=== PATIENT | female | born 2000 | race Caucasian/White ===

== ENCOUNTER 2018-07-01 17:41 | Emergency (ER) | payer OTHER, SELFPAY ==
[2018-07-01 18:24] LABS: Bilirubin Negative (Negative); Blood, Urine Negative (Negative); Clarity CLEAR (Clear); Glucose, Urine (Dipstick) Negative (Negative); Leukocyte Trace (Negative); Nitrite Positive (Negative); Protein, Urine (Dipstick) Negative (Neg-Trace); Specific Gravity, Urine 1.022 (1.002-1.036); Urobilinogen 0.2 mg/dL (0.2-1.0); pH, Urine 5.5 (5.0-9.0)
[2018-07-01 18:27] LABS: Bacteria/HPF 2+ HPF (None Seen); Hyaline Casts/LPF 0-3 HYALINE CAST LPF (0-3 Hyaline); Pathc Cast-AUWi Flag 0.43 (0-2.49); RBC/HPF 0-3 HPF (0-3); Squamous Epithelial 0-3 HPF (0-3)
[2018-07-01 18:30] LABS: Pregnancy Test - Urine (BHCG) Negative (Negative); Pregu Control Background? CLEAR/WHITE (CLR/WHITE); Pregu Control Bar Appear? YES (CONTROL BAR); Specific Gravity 1.022 (1.002-1.036)
[2018-07-01 18:32] LABS: #Basophils 0.1 thou/uL (0.0-0.2); #Eosinphils 0.1 thou/uL (0.0-0.7); #Lymphocytes 3.5 thou/uL (1.20-3.40); #Monocytes 0.9 thou/uL (0.11-0.59); #Neutrophils 8.1 thou/uL (1.40-6.50); %Basophils 0.5 % (0.0-1.0); %Eosinophils 0.7 % (0.0-10.0); %Lymphocytes 27.4 % (28.0-48.0); %Neutrophils 64.3 % (31.0-61.0); Hemoglobin 12.7 g/dL (12.0-16.0); Mean Corpuscular HGB CONC 33.1 g/dL (32.0-36.0); Mean Corpuscular Volume 87.7 fL (78.0-98.0); Mean Platelet Volume 7.7 fL (7.4-10.4); Platelet Count 253 thou/uL (130-400); RBC Distribution Width 13.6 % (11.5-14.5); Red Blood Cell (RBC) Count 4.38 mill/uL (4.00-5.20); White Blood Cell (WBC) Count 12.6 thou/uL (4.8-10.8)
[2018-07-01 18:33] LABS: Medtox Reader # READER 4; THC/Cannabinoid Screen Detected (NotDetected)
[2018-07-01 18:34] LABS: Amphetamine Not Detected (NotDetected); Barbiturates Screen Not Detected (NotDetected); Benzodiazepine Screen Detected (NotDetected); Cocaine Metabolite Screen Not Detected (NotDetected); Medtox Control Line Valid? VALID (VALID); Methadone Not Detected (NotDetected); Methamphetamine Not Detected (NotDetected); Opiate Screen Not Detected (NotDetected); Oxycodone Screen Not Detected (NotDetected); Phencyclidine (PCP) Not Detected (NotDetected); Tricyclic Screen Not Detected (NotDetected)
[2018-07-01 18:48] LABS: ALT (SGPT) 21 U/L (8-55); AST (SGOT) 15 U/L (5-30); Acetaminophen Less than 6.0 mcg/mL (10.0-30.0); Albumin 4.2 g/dL (3.5-5.0); Alcohol Less than 10 mg/dL (Less than 10); Alkaline Phosphatase 94 U/L (40-150); Anion Gap 14 mmol/L (10-20); BUN (Urea Nitrogen) 9 mg/dL (8.4-21.0); Bilirubin, Total 0.5 mg/dL (0.2-1.2); Calc. Creatinine Clearance 0 mL/min (70-130); Calcium 9.5 mg/dL (7.8-10.44); Carbon Dioxide 25 mmol/L (22-29); Chloride 105 mmol/L (98-107); Estimated GFR-MDRD Greater than 90; Globulin 3.4 g/dL (2.4-3.5); Glucose 97 mg/dL (70-105); Potassium 3.9 mmol/L (3.5-5.1); Protein, Total 7.6 g/dL (6.0-8.3); Salicylate Less than 8.0 mg/dL (15.0-30.0); Sodium 140 mmol/L (136-145)
[2018-07-01] MEDS ORDERED: risperiDONE 1 MG TAB ONE (19:19)
[2018-07-01] MEDS ORDERED: Haloperidol Lactate 5 MG/ML VIAL ONE (19:22)
[2018-07-01] MEDS ORDERED: Lorazepam 2 MG/ML VIAL ONE ×2 (19:22→21:53)
[2018-07-01] MEDS ORDERED: Ziprasidone 20 MG VIAL ONE (20:28)
[2018-07-01] MEDS ORDERED: Water For Inject, Bacteriostat 30 ML ONE (20:28)
[2018-07-01] MEDS ORDERED: diphenhydrAMINE 50 MG/ML VIAL ONE (21:55)
[2018-07-02] MEDS ORDERED: Nitrofurantoin Macrocrystal 50 MG CAP PO SCH (09:00)
[2018-07-02] MEDS ORDERED: Ibuprofen 200 MG TAB ONE (15:23)
--- NOTE | 2018-07-05 14:45 | EKG ---
Test Reason : Blood Pressure : / mmHG Vent. Rate : 100 BPM Atrial Rate : 100 BPM P-R Int : 132 ms QRS Dur : 080 ms QT Int : 342 ms P-R-T Axes : 026 026 000 degrees QTc Int : 441 ms Normal sinus rhythm / Sinus tachycardia Nonspecific T wave inversion in ant-precordial leads Possible Anterior infarct , age undetermined Abnormal ECG Confirmed by SHANE LAO, ROBERTO Vargas ([id number]), pictures editor RORY GELLER ([id number]) on 07/05/2018 2:44:29 PM Referred By: Confirmed By:ROBERTO LYNN MD
== END 2018-07-02 20:15 ==
LOC: ERS 17:41
DX: F20.9 Schizophrenia, unspecified (principal); N39.0 Urinary tract infection, site not specified; J45.909 Unspecified asthma, uncomplicated; F90.9 Attention-deficit hyperactivity disorder, unspecified type; F25.9 Schizoaffective disorder, unspecified; F31.9 Bipolar disorder, unspecified; F17.210 Nicotine dependence, cigarettes, uncomplicated
CPT/HCPCS: 36415; 80053; 80306; 80307; 81003; 81015; 81025; 85025; 93005; 96372; J1200; J1630; J2060; J3486

== ENCOUNTER 2019-07-15 16:23 | Emergency (ER) | payer MEDICARE, SELFPAY ==
[2019-07-15] MEDS ORDERED: Mag-Al 1200 mg/1200 mg/30 ML UDCUP ONE (17:43)
[2019-07-15] MEDS ORDERED: Lidocaine Viscous Sol 2% 15 ml UD Cup ONE (17:43)
[2019-07-15 17:46] LABS: #Basophils 0.1 thou/uL (0.0-0.2); #Eosinphils 0.2 thou/uL (0.0-0.7); #Lymphocytes 2.9 thou/uL (1.20-3.40); #Monocytes 0.7 thou/uL (0.11-0.59); #Neutrophils 10.1 thou/uL (1.40-6.50); %Basophils 0.5 % (0.0-1.0); %Eosinophils 1.5 % (0.0-10.0); %Lymphocytes 20.9 % (28.0-48.0); %Neutrophils 72.1 % (31.0-61.0); Hemoglobin 12.9 g/dL (12.0-16.0); Mean Corpuscular HGB CONC 34.2 g/dL (32.0-36.0); Mean Corpuscular Hemoglobin 29.8 pg (25.0-35.0); Mean Corpuscular Volume 87.3 fL (78.0-98.0); Mean Platelet Volume 7.4 fL (7.4-10.4); Platelet Count 264 thou/uL (130-400); RBC Distribution Width 12.4 % (11.5-14.5); Red Blood Cell (RBC) Count 4.32 mill/uL (4.00-5.20)
[2019-07-15 17:57] LABS: BHCG - Serum Negative (NEGATIVE); Pregs Control Background? CLEAR/WHITE (CLR/WHITE); Pregs Control Bar Appear? YES (CONTROL BAR)
[2019-07-15 18:00] LABS: ALT (SGPT) 14 U/L (8-55); AST (SGOT) 14 U/L (5-34); Alkaline Phosphatase 97 U/L (40-100); Anion Gap 11 mmol/L (10-20); BUN (Urea Nitrogen) 11 mg/dL (7.0-18.7); Bilirubin, Total 0.2 mg/dL (0.2-1.2); Calc. Creatinine Clearance 0 mL/min (70-130); Carbon Dioxide 27 mmol/L (22-29); Chloride 103 mmol/L (98-107); Estimated GFR-MDRD Greater than 90; Globulin 3.6 g/dL (2.4-3.5); Glucose 118 mg/dL (70-105); Lipase 27 U/L (8-78); Potassium 4.1 mmol/L (3.5-5.1); Protein, Total 7.6 g/dL (6.0-8.3); Sodium 137 mmol/L (136-145)
--- NOTE | 2019-07-15 18:47 | RAD ---
PORTABLE CHEST: History: Epigastric pain. Comparison: 11-06-12 FINDINGS: Heart size and mediastinum are within normal limits. The lungs are clear of infiltrates. No significa nt bony findings. IMPRESSION: No active intrathoracic disease. POS: [facility]
[2019-07-15] MEDS ORDERED: Morphine 4 MG/ML VIAL ONE (19:17)
[2019-07-15] MEDS ORDERED: Ondansetron PF 4 MG/2 ML Vial ONE (19:17)
--- NOTE | 2019-07-17 15:39 | EKG ---
Test Reason : Blood Pressure : / mmHG Vent. Rate : 112 BPM Atrial Rate : 112 BPM P-R Int : 140 ms QRS Dur : 074 ms QT Int : 342 ms P-R-T Axes : 023 005 015 degrees QTc Int : 466 ms Sinus tachycardia Otherwise normal ECG Confirmed by GENESIS LARSON DO ([id number]), proposal editor DEANA TRACY ([id number]) on 07/17/2019 3:39:40 PM Referred By: Confirmed By:GENESIS LARSON DO
== END 2019-07-15 19:25 | disposition home or self-care (01) ==
LOC: ERS 16:23
DX: R10.13 Epigastric pain (principal); J45.909 Unspecified asthma, uncomplicated; F90.9 Attention-deficit hyperactivity disorder, unspecified type; F31.9 Bipolar disorder, unspecified; F17.210 Nicotine dependence, cigarettes, uncomplicated
CPT/HCPCS: 36415; 71045; 80053; 83690; 84703; 85025; 93005; 94760; J2270; J2405

== ENCOUNTER 2019-08-31 14:13 | Emergency (ER) | payer MEDICARE ==
[2019-08-31 14:49] LABS: #Basophils 0.1 thou/uL (0.0-0.2); #Eosinphils 0.2 thou/uL (0.0-0.7); #Lymphocytes 2.8 thou/uL (1.20-3.40); #Monocytes 0.7 thou/uL (0.11-0.59); %Basophils 0.5 % (0.0-1.0); %Lymphocytes 19.1 % (28.0-48.0); %Monocytes 4.9 % (0.0-4.0); %Neutrophils 74.6 % (31.0-61.0); Hemoglobin 12.6 g/dL (12.0-16.0); Mean Corpuscular HGB CONC 32.6 g/dL (32.0-36.0); Mean Corpuscular Hemoglobin 28.2 pg (25.0-35.0); Mean Corpuscular Volume 86.4 fL (78.0-98.0); Mean Platelet Volume 7.4 fL (7.4-10.4); Platelet Count 284 thou/uL (130-400); Red Blood Cell (RBC) Count 4.48 mill/uL (4.00-5.20); White Blood Cell (WBC) Count 14.8 thou/uL (4.8-10.8)
[2019-08-31] MEDS ORDERED: Acetaminophen 500 MG TAB ONE (15:11)
[2019-08-31 15:14] LABS: BHCG - Serum Negative (NEGATIVE); Pregs Control Background? CLEAR/WHITE (CLR/WHITE); Pregs Control Bar Appear? YES (CONTROL BAR)
--- NOTE | 2019-08-31 15:18 | CT ---
BRAIN CT WITHOUT IV CONTRAST: Date: 08/31/2019 HISTORY: Injury, possible seizure activity. Fall to the ground. FINDINGS: No focal mass or midline shift. No intra or extra-axial hemorrhage. Sinuses and mastoids are clear. IMPRESSION: No significant acute intracranial process. No mass or bleed. POS: [facility]
[2019-08-31 15:20] LABS: ALT (SGPT) 14 U/L (8-55); AST (SGOT) 14 U/L (5-34); Albumin 4.2 g/dL (3.5-5.0); Alkaline Phosphatase 108 U/L (40-100); Anion Gap 13 mmol/L (10-20); BUN (Urea Nitrogen) 11 mg/dL (7.0-18.7); Bilirubin, Total 0.4 mg/dL (0.2-1.2); Calc. Creatinine Clearance 0 mL/min (70-130); Carbon Dioxide 23 mmol/L (22-29); Chloride 105 mmol/L (98-107); Estimated GFR-MDRD Greater than 90; Globulin 3.8 g/dL (2.4-3.5); Glucose 96 mg/dL (70-105); Sodium 137 mmol/L (136-145)
[2019-08-31] MEDS ORDERED: Ibuprofen 800 MG TAB ONE (15:39)
== END 2019-08-31 16:41 | disposition home or self-care (01) ==
LOC: ERS 14:13
DX: R55 Syncope and collapse (principal); J45.909 Unspecified asthma, uncomplicated; F90.9 Attention-deficit hyperactivity disorder, unspecified type; F31.9 Bipolar disorder, unspecified; F25.9 Schizoaffective disorder, unspecified; F17.210 Nicotine dependence, cigarettes, uncomplicated; Z79.899 Other long term (current) drug therapy
CPT/HCPCS: 36415; 70450; 80053; 84146; 84703; 85025; 93005

== ENCOUNTER 2019-10-24 18:32 | Inpatient (IN) | payer MEDICARE ==
[2019-10-24] MEDS ORDERED: Ketorolac Tromethamine 30 MG/ML VIAL ONE (19:13)
[2019-10-24] MEDS ORDERED: Ondansetron PF 4 MG/2 ML Vial ONE (19:14)
[2019-10-24 19:17] LABS: #Lymphocytes 1.6 thou/uL (1.20-3.40); #Monocytes 0.6 thou/uL (0.11-0.59); %Basophils 0.4 % (0.0-1.0); %Eosinophils 0.5 % (0.0-10.0); %Lymphocytes 17.2 % (21.0-51.0); %Monocytes 6.8 % (0.0-10.0); %Neutrophils 75.2 % (42.0-75.0); Hemoglobin 14.4 g/dL (12.0-16.0); Mean Corpuscular Hemoglobin 28.8 pg (27.0-31.0); Mean Corpuscular Volume 84.8 fL (78.0-98.0); Mean Platelet Volume 7.9 fL (7.4-10.4); Platelet Count 279 thou/uL (130-400); RBC Distribution Width 12.3 % (11.5-14.5); White Blood Cell (WBC) Count 9.3 thou/uL (4.8-10.8)
[2019-10-24 19:26] LABS: BHCG - Serum Negative (NEGATIVE); Pregs Control Background? CLEAR/WHITE (CLR/WHITE); Pregs Control Bar Appear? YES (CONTROL BAR)
[2019-10-24 19:46] LABS: ALT (SGPT) 197 U/L (8-55); AST (SGOT) 259 U/L (5-34); Albumin 4.2 g/dL (3.5-5.0); Alkaline Phosphatase 267 U/L (40-110); Anion Gap 15 mmol/L (10-20); BUN (Urea Nitrogen) 5 mg/dL (7.0-18.7); Bilirubin, Total 2.3 mg/dL (0.2-1.2); Calc. Creatinine Clearance 0 mL/min (70-130); Calcium 9.5 mg/dL (7.8-10.44); Carbon Dioxide 25 mmol/L (22-29); Chloride 102 mmol/L (98-107); Estimated GFR-MDRD Greater than 90; Glucose 111 mg/dL (70-105); Lipase 13 U/L (8-78); Protein, Total 8.2 g/dL (6.0-8.3); Sodium 138 mmol/L (136-145)
[2019-10-24 20:16] LABS: Bilirubin 1+ (Negative); Blood, Urine Negative (Negative); Clarity Clear (Clear); Glucose, Urine (Dipstick) Normal (Negative); Leukocyte Negative Leu/uL (Negative); Nitrite Negative (Negative); Protein, Urine (Dipstick) 20 mg/dL (Neg-Trace); Urobilinogen 3 mg/dL (Less than 2)
--- NOTE | 2019-10-24 21:17 | CT ---
CT ABDOMEN NONCONTRAST CT PELVIS NONCONTRAST: (Urolithiasis protocol) DATE: 10/24/2019 HISTORY: 19-year-old female with abdominal pain TECHNIQUE: IV injection of iodinated contrast media: None Oral contrast media: None FINDINGS: Other than for urolithiasis, the lack of IV and oral contrast limits the evaluation. Liver: No contour abnormalities. Spleen: No splenomegaly. Pancreas: No contour abnormalities. Adrenals: No mass. Kidneys: No nephrolithiasis or overt hydronephrosis. Ureters: No calculi. Bladder: Nearly empty. No calculi. Abdominal aorta: No aneurysm. Small bowel: No dilation. Colon: No adjacent fat stranding. Appendix: No dilation or adjacent fat stranding. Free air: None Free fluid: None Adnexa: Approximately 6 x 5.5 x 5.5 cm smoothly well-circumscribed simple cyst within pelvic cavity c entered slightly to the right of midline superior to the urinary bladder, deeply indenting the bladder dome. No surrounding fat stranding. IMPRESSION: 1. A 6 cm intrapelvic cyst, presumably arising from right ovary. 2. No acute findings.
[2019-10-24] MEDS ORDERED: Piperacillin/Tazobactam 3.375 GM VIAL ONE (22:13)
--- NOTE | 2019-10-24 22:26 | ULT ---
ULTRASOUND ABDOMEN LIMITED: (RIGHT UPPER QUADRANT) DATE: 10/24/2019 HISTORY: 19-year-old female with abdominal pain and elevated LFTs. FINDINGS: Gallbladder:Multiple small mobile gallstones. These are noncalcified, because they are not visible on the CT earlier. Mildly distended. Normal mural thickness 3 mm or less. Common duct: 7 mm. Contains a gallstone approximately 8 or 10 mm in size. Liver:Normal Pancreas:Tail obscured by shadowing from bowel gas. Unremarkable head Right kidney:No hydronephrosis IMPRESSION: 1. Positive for choledocholithiasis. 2. Positive for cholelithiasis.
[2019-10-25 00:24] VITALS: BMI 47.4
[2019-10-25] MEDS ORDERED: Ziprasidone 60 MG CAP PO SCH (00:30)
[2019-10-25] MEDS: Sodium Chloride 0.9% 1,000 ML IV SCH ×3 (00:53→16:06)
[2019-10-25] MEDS: Piperacillin/Tazobactam 3.375 GM in Sodium Chloride 0.9% 100 ML IVPB SCH ×4 (03:24→23:11)
[2019-10-25 05:26] LABS: Band 11 % (5-11); Hemoglobin 13.2 g/dL (12.0-16.0); Lymphocytes 4 % (21-51); MDiff Complete? YES; Mean Corpuscular HGB CONC 33.5 g/dL (32.0-36.0); Mean Corpuscular Hemoglobin 28.3 pg (27.0-31.0); Mean Corpuscular Volume 84.5 fL (78.0-98.0); Mean Platelet Volume 7.9 fL (7.4-10.4); Monocytes 7 % (0-10); Neutrophil 78 % (42-75); Platelet Count 273 thou/uL (130-400); RBC Distribution Width 12.4 % (11.5-14.5); Red Blood Cell (RBC) Count 4.66 mill/uL (4.20-5.40); White Blood Cell (WBC) Count 15.2 thou/uL (4.8-10.8)
[2019-10-25 05:30] LABS: ALT (SGPT) 223 U/L (8-55); AST (SGOT) 264 U/L (5-34); Albumin 3.8 g/dL (3.5-5.0); Alkaline Phosphatase 296 U/L (40-110); Anion Gap 14 mmol/L (10-20); BUN (Urea Nitrogen) 4 mg/dL (7.0-18.7); Bilirubin, Total 2.9 mg/dL (0.2-1.2); Calc. Creatinine Clearance 244 mL/min (70-130); Calcium 8.9 mg/dL (7.8-10.44); Carbon Dioxide 24 mmol/L (22-29); Chloride 103 mmol/L (98-107); Estimated GFR-MDRD Greater than 90; Globulin 3.6 g/dL (2.4-3.5); Glucose 128 mg/dL (70-105); Potassium 3.8 mmol/L (3.5-5.1); Protein, Total 7.4 g/dL (6.0-8.3); Sodium 137 mmol/L (136-145)
--- NOTE | 2019-10-25 06:18 | HP ---
CHIEF COMPLAINT: Abdominal pain. HISTORY OF PRESENT ILLNESS: Ms. Garcia is a 19-year-old female with past medical history of schizophrenia and bipolar/psychosis, who presents to the emergency room with abdominal pain, associated with nausea and vomiting that started earlier today. The patient denies fevers, chills, or sick contacts. Workup in the emergency room including right upper quadrant ultrasound. The patient was found to have cholelithiasis with choledocholithiasis. CT of the abdomen did show a 6-cm intrapelvic cyst arising from the ovary. Otherwise, no acute finding. The patient is being admitted to the hospital for further management. PAST MEDICAL HISTORY: As mentioned above in the History of Present Illness. SOCIAL HISTORY: The patient is a former drug user, abused marijuana, last in 2019. Ecstasy, last one year ago. She currently uses tobacco, smokes cigarettes. She lives at home with family. FAMILY HISTORY: Reviewed and noncontributory. HOME MEDICATIONS: Please see home medication reconciliation form for updated medications. ALLERGIES: ALLERGIC TO LITHIUM. REVIEW OF SYSTEMS: Review of 14 systems negative except what is mentioned in History of Present Illness. PHYSICAL EXAMINATION: GENERAL: The patient is awake, alert, in mild distress. VITAL SIGNS: Blood pressure 130/60, pulse is 87, respiratory rate is 18, temperature is 98.2, and oxygen saturation 98% on room air. HEENT: Head and neck; normocephalic, atraumatic. NECK: Supple. No JVD. CHEST: Fair bilateral air entry. HEART: S1, S2. Regular. ABDOMEN: Soft with epigastric right upper quadrant tenderness. Bowel sounds present. NEUROLOGIC: Awake, alert, and oriented x3. PSYCH: Unable to assess. EXTREMITIES: No clubbing, no cyanosis. GENITOURINARY: No suprapubic tenderness. No flank tenderness. IMAGING STUDIES: CT of the abdomen and right upper quadrant ultrasound, as mentioned above in History of Present Illness. AST 259, ALT 197, alkaline phosphatase 267, bilirubin is 2.3. WBC count is 9.3. ASSESSMENT: 1. Cholelithiasis with choledocholithiasis. 2. Acute abdominal pain. 3. Vomiting. 4. Bipolar disorder/psychosis/schizophrenia. PLAN: 1. Admit. 2. Keep n.p.o. 3. IV fluids. 4. Consult GI for evaluation and further management. 5. To consult Surgery for evaluation and further management. 6. Pain management. 7. Reconcile home medications. 8. DVT prophylaxis as appropriate. 9. Expected length of stay, 2 midnights or more. Job ID: [id number]
[2019-10-25] MEDS: Famotidine/PF 20 mg/2ml Vial SLOW IVP SCH ×2 (09:00→20:36)
[2019-10-25] MEDS: Ziprasidone 60 MG CAP PO SCH ×2 (09:07→16:08)
[2019-10-25] MEDS ORDERED: Fentanyl 100 MCG/2 ML VIAL ONE ×5 (09:43→13:58)
[2019-10-25] MEDS ORDERED: Lidocaine 2% Jelly 5 ML TUBE ONE (09:43)
[2019-10-25] MEDS ORDERED: Bupivacaine 0.25% HCL 30 ML VIAL ONE (09:58)
[2019-10-25] MEDS ORDERED: Lidocaine 1% w/Epinephrine 1:100K 20 ML VIAL ONE (09:58)
--- NOTE | 2019-10-25 10:49 | CON ---
DATE OF CONSULTATION: CHIEF COMPLAINT: Abdominal pain with abdominal ultrasound showing cholelithiasis with choledocholithiasis. HISTORY OF PRESENT ILLNESS: The patient is a 19-year-old woman, who presented to the emergency department with 1-week history of nausea, vomiting, but increased significantly causing her to come to the emergency department. The patient believes that her original abdominal complaints started in August and were off and on until she presented to the emergency department. The patient while on the emergency department underwent evaluation and examination to include abdominal CT and abdominal ultrasound that were consistent with cholelithiasis with choledocholithiasis and acute cholecystitis, which time we were asked to evaluate the patient for cholecystectomy. The patient is also being evaluated by Dr. Palencia for ERCP. ALLERGIES: LITHIUM. CURRENT MEDICATIONS: 1. Bentyl. 2. Sertraline. 3. Geodon. PAST SURGICAL HISTORY: None. PAST MEDICAL HISTORY: Depression, bipolar disorder and anxiety. SOCIAL HISTORY: The patient lives at home with family. She smokes cigarettes and denies alcohol. Has used marijuana and ecstasy in the past. REVIEW OF SYSTEMS: Ten-point review of systems is negative, except as otherwise stated. PHYSICAL EXAMINATION: VITAL SIGNS: Temperature is 98.9, heart rate 81, blood pressure 120/70, respirations 18, oxygen saturation 97% on room air. GENERAL: The patient is resting comfortably in bed. She is awake, alert, oriented, and appropriate. HEENT: Unremarkable. LUNGS: Clear to auscultation bilaterally with good inspiratory and expiratory effort, though the patient does have some right upper quadrant pain with deep inspiration. ABDOMEN: The abdomen is soft with right upper quadrant pain. Otherwise, no peritoneal signs. The patient does have active bowel sounds. Meyers sign is positive. EXTREMITIES: Neurovascularly intact x4. BACK: Atraumatic and nontender. There is no CVA tenderness. LABORATORY FINDINGS: White blood cell count 15.2, hemoglobin 13.2, hematocrit 39.4, platelets 273. Urinalysis is positive for urobilinogen and bilirubin. Sodium 137, potassium 3.8, chloride 103, CO2 of 24, BUN 4, creatinine 0.70, glucose 128. Total bilirubin is 2.9 up from 2.3; AST is 264, increased from 259; ALT 223, increased from 197; alkaline phosphatase is 296, increased from 267. Serum hCG is negative. RADIOGRAPHIC REPORTS: CT of the abdomen and pelvis without contrast showed no acute findings with incidental finding of a 6 cm right ovarian cyst. Abdominal ultrasound is positive for choledocholithiasis, cholelithiasis. Common bile duct measuring 7 mm. ASSESSMENT: 1. Abdominal pain. 2. Cholelithiasis with choledocholithiasis. PLAN: Plan will be to keep the patient n.p.o., plan for laparoscopic cholecystectomy, followed by ERCP. Postoperatively, we will repeat her labs in the morning, begin her diet, and likely will be able to discharge the patient home tomorrow. The evaluation, examination, laboratory, and radiographic findings were done with Dr. Hunt. We appreciate this consultation and being able to help with this patient's care. Job ID: [id number] [facility]
--- NOTE | 2019-10-25 10:49 | CON ---
DATE OF CONSULTATION: 10/25/2019 REASON FOR CONSULT: "Choledocholithiasis." HISTORY OF PRESENT ILLNESS: Ms. Garcia is a pleasant 19-year-old female who came to the emergency room yesterday for abdominal pain for about a week, upper abdomen, and also some back pain along with some vomiting. She had a little bit of diarrhea as well. She denied any fever, chills, rigors, myalgias, arthralgias, or flu-like symptoms. She notes she has had this pain on and off at least back to whole August. She has had a few prescriptions for Bentyl from her PCP. At this presentation, she was noted to have elevated liver enzymes, which is a new finding from prior evaluations. She had a CAT scan without any IV or oral contrast, which was normal except for a 6 cm cyst arising from the ovary. An ultrasound was then performed and showed cholelithiasis and a 7 to 8 mm common bile duct with showing choledocholithiasis. The patient has had no fever. She has been started on Zosyn. She denies any vomiting. She is urinating. PAST MEDICAL HISTORY: 1. Notable for bipolar disorder. 2. She has a history of hypertriglyceridemia. 3. She has had ADHD. 4. She has had previous suicide attempts with hospitalization at [facility] in [place]. PAST SURGICAL HISTORY: None. SOCIAL HISTORY: Former drug abuse; marijuana, ecstasy; none since June 2019. ALLERGIES: LITHIUM. MEDICATIONS: Presently, 1. Geodon. 2. Sertraline. Dicyclomine at home. Here, she received Toradol yesterday, Zofran, Zosyn in the ER as well as a liter of normal saline. Presently, she is on Pepcid and normal saline 100, Zosyn, Geodon, and Zoloft. REVIEW OF SYSTEMS: No prior history of pancreatitis. No melena, hematochezia, or hematemesis. No shortness of breath, dyspnea, or chest pain. No reflux or dysphagia. No viral symptoms. No recent travel out of the state or out of the country. No sick contacts at home with COVID or flu-like illness. PHYSICAL EXAMINATION: VITAL SIGNS: Temperature is 98.3, pulse 81, blood pressure 120/70. GENERAL: The patient is resting in bed. She is overweight. She is nonicteric. Oropharynx is dry. LUNGS: Clear. ABDOMEN: Notable for tenderness without guarding or rebound, mostly in the upper abdomen. She has some low back pain. When I palpate, she states this is more over the sacral area which is mildly tender. EXTREMITIES: No clubbing, cyanosis, or edema. SKIN: Without rash or lesions. LABORATORY DATA: Urinalysis showed some ketones, 1+ bilirubin on admission yesterday. White count is 15.2, it was 9.3 yesterday; hemoglobin is 13.2; platelet count is 273. She had 78% segs and 11% bands. Sodium 137, potassium 3.8, BUN and creatinine are 4 and 0.7, glucose 128. AST 2.9, it was 2.3 yesterday, it was normal on 08/31/2019. AST and ALT are 264 and 223, they were 259 and 197 yesterday, they were normal on 08/31. Alkaline phosphatase of 296, it was normal on 08/31. test negative on 10/23. Lipase was normal yesterday, it was 13. IMAGING DATA: CT scan shows a cyst in the pelvis, suspected to be ovarian by Radiology, suspected to be from the right ovary. That exam showed no overt choledocholithiasis. An ultrasound yesterday at 2100 showed cholelithiasis and suspected choledocholithiasis with normal thickness of the gallbladder, 7 mm common bile duct with an 8 to 10 mm size stone in the common bile duct. ASSESSMENT: Cholelithiasis and choledocholithiasis with elevated white count and mild bandemia. She does not appear to be septic at this time or have pancreatitis at this time, although her lipase was not checked today. She has been started on antibiotics empirically. She has mildly tender abdomen. She is very high risk for cholangitis and pancreatitis. She needs an ERCP that will need to be done today and we are going to go ahead and do that first and Surgery will follow the ERCP with laparoscopic cholecystectomy and we will plan for that today. The patient has been informed of the risks, benefits, and possible complications of endoscopy including perforation, bleeding, reaction to medication, and aspiration and informed consent was obtained. I informed the patient the risk of pancreatitis, bleeding, infection and possibly not being able to remove the stone. She wished to proceed. Job ID: [id number]
[2019-10-25] MEDS ORDERED: Glycopyrrolate 0.2 MG/ML 5 ML SYRINGE ONE (11:25)
[2019-10-25] MEDS ORDERED: Ondansetron PF 4 MG/2 ML Vial ONE (11:25)
[2019-10-25] MEDS ORDERED: Ketorolac Tromethamine 30 MG/ML VIAL ONE (11:25)
[2019-10-25] MEDS ORDERED: PROPOFOL 200 MG/20 ML VIAL ONE (11:26)
[2019-10-25] MEDS ORDERED: Succinylcholine Chloride 20 MG/ML 10 ml SYRINGE FS ONE (11:26)
[2019-10-25] MEDS ORDERED: Dexamethasone 20 MG/5 ML VIAL ONE (11:26)
[2019-10-25] MEDS ORDERED: Rocuronium Bromide 10 MG/ML (10ML VIAL) ONE (11:26)
[2019-10-25] MEDS ORDERED: Lidocaine 1% PF 5 ML VIAL ONE (11:26)
[2019-10-25] MEDS ORDERED: Esmolol 100 MG/10 ML VIAL ONE (11:26)
[2019-10-25] MEDS ORDERED: Indomethacin 50 MG SUPP ONE (11:46)
[2019-10-25] MEDS ORDERED: Iothalamate Meglumine 60% 50 ML VIAL FS ONE (11:46)
--- NOTE | 2019-10-25 13:04 | OP ---
DATE OF PROCEDURE: 10/25/2019 PREOPERATIVE DIAGNOSES: 1. Acute cholecystitis with cholelithiasis. 2. Choledocholithiasis. POSTOPERATIVE DIAGNOSES: 1. Acute cholecystitis with cholelithiasis. 2. Choledocholithiasis. PROCEDURE PERFORMED: Laparoscopic cholecystectomy. ANESTHESIA: General endotracheal anesthesia. ESTIMATED BLOOD LOSS: 10 mL. FLUIDS GIVEN: 700 mL of crystalloids. COUNTS: Sponge and instrument counts were verified as correct x2. COMPLICATIONS: None apparent at the time of operation. INDICATIONS FOR OPERATION: This is a 19-year-old obese woman, who presented with epigastric right upper quadrant abdominal pain. Clinical radiographic examination was consistent with acute cholecystitis with cholelithiasis and choledocholithiasis. The patient was brought to the operating room for laparoscopic cholecystectomy, following which, she will undergo ERCP per endoscopy. DESCRIPTION OF PROCEDURE: Informed consent was obtained from the patient, who was brought to the operating room and placed in supine position. Following general anesthesia, abdomen was sterilely prepped and draped in usual fashion. The skin below the umbilicus was infiltrated with 0.25% Marcaine with epinephrine. A small curvilinear infraumbilical incision was made using 11 scalpel. Umbilical stalk was grasped with Marcos and elevated. Veress needle was inserted through the incision and placed in the peritoneal cavity, through which the abdomen was insufflated with 3 L of CO2 gas. Intraabdominal pressure noted at 2 mmHg. Following abdominal insufflation, Veress needle was removed and a 5 mm trocar was introduced using a Visiport under laparoscopy. Laparoscopy confirmed proper placement of the port. No injuries to underlying structures. Additional laparoscopy reveals the gallbladder in the usual anatomic location, partially encased by omental adhesions. Under direct laparoscopy, a 12 mm epigastric and two 5 mm right lateral subcostal ports were placed after the overlying skin were infiltrated with 0.25% Marcaine with epinephrine. Appropriate incision was made. The patient was placed in a reverse Trendelenburg position, rotated to her left. I introduced a Prestige grasper through the right lateral subcostal port attempted to grasp the fundus of the gallbladder, which was taut. I therefore decided to decompress the gallbladder to facilitate grasping. I used an Endo suction catheter with cautery to perform a cholecystotomy at the dome of the gallbladder, evacuating excess white bile. Prestige grasper was then applied to the fundus of the gallbladder, which was elevated cephalad. Omental adhesions were bluntly taken down from remainder of the gallbladder. A second Prestige grasper was introduced through the right medial subcostal port grasping the Shirley pouch, which was retracted laterally. The cystic duct was carefully dissected free from surrounding structures at the triangle of Calot. The cystic artery also dissected free from surrounding structures. The critical view was obtained of the artery and the cystic duct. The cystic duct was then divided between clips applying 2 clips proximally and 1 clip at the junction of the cystic duct and gallbladder. The cystic artery was also divided between clips in a similar fashion. The fibrosed thick-walled gallbladder was removed from the liver bed using cautery with good hemostasis and delivered of the abdominal cavity using an EndoCatch. Operative site was inspected for good hemostasis. Clips remained in place. No bile stains noted. Finding, no other pathology. Laparoscopy was terminated. Fascia of the epigastric port was closed using 0 Vicryl suture and Endoclosure device under laparoscopy. The abdomen was desufflated. All ports and instruments were removed and accounted for. Skin incisions were closed using 4-0 Monocryl suture in subcuticular fashion. Dermabond was applied over incisional closure. The patient tolerated the operation without any apparent complication and was returned to endoscopy to the care of Dr. Palencia, who will proceed with ERCP. Job ID: [id number]
--- NOTE | 2019-10-25 13:05 | RAD ---
EXAM: XR ERCP PROVIDED CLINICAL HISTORY: Common duct stone COMPARISON: None FINDINGS: Multiple spot fluoroscopic images were obtained Dr. Palencia during the course of common duct stone rem oval. IMPRESSION: As above.
[2019-10-25] MEDS ORDERED: Ondansetron HCl/PF 4 MG/2 ML Vial IVP PRN ×2 (13:20→13:45)
[2019-10-25] MEDS ORDERED: Promethazine HCl 25 MG/ML VIAL IM PRN (13:20)
[2019-10-25] MEDS ORDERED: Promethazine HCl 25 MG/ML VIAL SLOW IVP PRN (13:20)
[2019-10-25] MEDS ORDERED: Meperidine HCl/PF 25 MG/ML VIAL ONE (13:40)
[2019-10-25] MEDS ORDERED: Non-Formulary Medication 1 EACH PO PRN (13:45)
[2019-10-25] MEDS ORDERED: Meperidine HCl/PF 25 MG/ML VIAL IV PRN (13:45)
[2019-10-25] MEDS ORDERED: Promethazine HCl 25 MG/ML VIAL IM/IV PRN (13:45)
[2019-10-25] MEDS ORDERED: traMADol HCl 50 MG TAB PO PRN ×2 (14:11)
[2019-10-25] MEDS: Acetaminophen 500 MG TAB PO SCH ×2 (15:05→20:36)
--- NOTE | 2019-10-25 15:29 | OP ---
DATE OF PROCEDURE: 10/25/2019 PREPROCEDURE DIAGNOSES: 1. Elevated LFTs. 2. Cholelithiasis. 3. Suspected choledocholithiasis. 4. Status post laparoscopic cholecystectomy. IOC was not able to be performed secondary to hydrops of the gallbladder and obstructed cystic duct. POSTPROCEDURE DIAGNOSES: 1. Normal-appearing ampulla. 2. There seems to be a strictured area at the mid common bile duct. This could be at the area of the cystic duct stump. The cystic duct never did fill, but it comes in from the right aspect of the bile duct wall, is around and smooth, first is felt to be a stone on imaging, but on magnified views, this seems to be adherent to the wall of the mid common bile duct in the area of the cystic duct stump. 3. No other filling defects were seen. 4. A 12 mm balloon was able to be brought through the entire bile duct with negative occlusion cholangiogram otherwise. There was resistance of pulling across the narrowing at the mid bile duct, the balloon did come past here. There was poor drainage and therefore a 7 cm 11.[place] stent was placed across this area. I would consider the differential diagnosis would include malignancy, Mirizzi like syndrome or inflammation related to severe cholecystitis. RECOMMENDATIONS: 1. Continue antibiotics. 2. Follow LFTs. 3. Repeat ERCP in 4 to 6 weeks to remove stent and recheck anatomy. 4. We will get an MRCP if this will remain without appearance. ANESTHESIA: General endotracheal anesthesia. ANTIBIOTICS: Placed on antibiotics upstairs. Indocin was given rectally. DESCRIPTION OF PROCEDURE: After the patient is informed of the risks, benefits, and possible complications of endoscopy including perforation, reaction to medication, aspiration, risks of ERCP including pancreatitis and General Surgery was consulted to remove her gallbladder, the patient was brought from the OR to the fluoroscopy suite where she was placed in prone position. She was intubated before she was brought to the fluoroscopy suite. The side-viewing duodenoscope was advanced to the esophagus, stomach, and second and third portions of the duodenum and was slowly removed. There was good visualization of the mucosa. There was no mass lesions or AV malformations identified. The ampulla was identified and free cannulation was obtained, initially with a guidewire and then the cannula over that. The cholangiogram revealed filling defect in the mid common bile duct as noted above. This is maybe less than a centimeter in size. It was not a narrowed tapering on both sides, but an impingement on the duct from the medial side to the lateral side and this may represent inflammation. This was not mobile. It was not a free-floating stone. A 12 mm balloon was used to shoot an occlusion cholangiograms after a sphincterotomy was performed and there was no other filling defects seen or stones. There was a small amount of pus in the biliary tree that came out. Therefore, as there was poor drainage of the contrast from the upper common bile duct, common hepatic duct and intrahepatic ducts, a stent was placed across this narrowed area under fluoroscopic and video guidance. The placement was confirmed placed. There was spontaneous drainage of contrast and pus. The scope was removed. The patient tolerated the procedure well. There were no complications. Job ID: [id number]
--- NOTE | 2019-10-25 16:27 | PDOC.HOSPP ---
- Subjective Encounter Date: 10/25/19 Encounter Time: 16:23 Subjective: pt up in bed drowsy - Objective Vital Signs & Weight: Vital Signs (12 hours) Temp Pulse Resp BP Pulse Ox 10/25/19 16:18 97.4 F L 66 16 111/57 L 96 10/25/19 14:20 97.6 F 70 16 115/68 97 10/25/19 07:10 98.9 F 81 18 120/70 97 Weight Admit Weight 267 lb 10.24 oz Weight 267 lb 10.24 oz I&O: 10/24/19 10/25/19 10/26/19 06:59 06:59 06:59 Intake Total 700 Balance 700 Result Diagrams: 10/25/19 04:33 10/25/19 04:33 Hospitalist ROS - Review of Systems Respiratory: denies: cough, dry, shortness of breath, hemoptysis, SOB with excertion, pleuritic pain, sputum, wheezing, other Cardiovascular: denies: chest pain, palpitations, orthopnea, paroxysmal noc. dyspnea, edema, light headedness, other Gastrointestinal: denies: nausea, vomiting, abdominal pain, diarrhea, constipation, melena, hematochezia, other Genitourinary: denies: dysuria, frequency, incontinence, hematuria, retention, other - Medication Medications: Active Medications Generic Name Dose Route Start Last Admin Trade Name Freq PRN Reason Stop Dose Admin Acetaminophen 1,000 mg 10/25/19 14:30 10/25/19 15:05 Tylenol PO 1,000 mg Q6H PAL Administration Famotidine 20 mg 10/25/19 09:00 10/25/19 09:00 Pepcid SLOW IVP 20 mg Q12HR PAL Administration Sodium Chloride 1,000 mls @ 100 mls/hr 10/24/19 22:45 10/25/19 16:06 Normal Saline 0.9% IV 1,000 mls .Q10H PAL Administration Piperacillin Sod/Tazobactam 100 mls @ 200 mls/hr 10/25/19 04:00 10/25/19 16: 07 Sod 3.375 gm/ Sodium Chloride IVPB 100 mls 0400,1000,1600,2200 PAL Administration Sertraline HCl 100 mg 10/25/19 09:00 10/25/19 09:06 Zoloft PO Not Given DAILY PAL Tramadol HCl 100 mg 10/25/19 14:11 10/25/19 16:08 Ultram PO 100 mg Q6H PRN Administration Severe Pain (7-10) Ziprasidone 60 mg 10/25/19 08:00 10/25/19 16:08 Geodon PO 60 mg BID-WM PAL Administration - Exam Neck: negative: supple, symmetric, no JVD, no thyromegaly, no lymphadenopathy, no carotid bruit, JVD Heart: negative: RRR, no murmur, no gallops, no rubs, normal peripheral pulses, irregular, diminshed peripheral pulses, murmur present, II/IV, III/IV Respiratory: negative: CTAB, no wheezes, no rales, no ronchi, normal chest expansion, no tachypnea, normal percussion, rales, rhonchi, tachypneic, wheezes Gastrointestinal: soft Gastrointestinal - other findings: x4 laproscopic incision Hosp A/P (1) Pain in the abdomen Code(s): R10.9 - UNSPECIFIED ABDOMINAL PAIN Status: Acute (2) Cholecystitis Code(s): K81.9 - CHOLECYSTITIS, UNSPECIFIED Status: Acute (3) Bipolar disorder Code(s): F31.9 - BIPOLAR DISORDER, UNSPECIFIED Status: Acute (4) Obesity Code(s): E66.9 - OBESITY, UNSPECIFIED Status: Acute - Plan pt is s/p lap rodo, will continue home meds. if she tolerated orals will possible discharge in am when ok with surgery.
[2019-10-25] MEDS: Ketorolac Tromethamine 30 MG/ML VIAL IVP SCH ×2 (18:02→23:11)
--- NOTE | 2019-10-25 23:45 | PRG ---
DATE OF SERVICE: 10/25/2019 SUBJECTIVE: Jose is a 19-year-old female with acute cholecystitis, cholelithiasis, and choledocholithiasis. She underwent laparoscopic cholecystectomy today with Dr. Hunt. Postop, the patient reports pain is localized on the incision site. She is able to walk to the bathroom for personal care. She developed no fever or shortness of breath. She reports no nausea or vomiting. The vital signs have been stable. Urine adequate. She not yet passing gas or have a bowel. OBJECTIVE: GENERAL: Currently, the patient lying in bed comfortable. No acute respiratory distress. VITAL SIGNS: Stable. LUNGS: Clear bilaterally. HEART: Regular rate and rhythm. ABDOMEN: Soft and nondistended. No rebound. Pain localized on the incision site. Bowel sound hypoactive. Incision site clean, dry, and intact. ASSESSMENT: 1. Acute cholecystitis with choledocholithiasis. 2. Elevated LFT, status post laparoscopic cholecystectomy, postop day #0. PLAN: Plan will be continue supportive care. Continue pain control. The patient will have an LFT check tomorrow. Encourage the physical activity. The patient will remain on clear liquid tonight. Anticipate advancing to full liquid tomorrow. Anticipate discharge home in the next 24 to 48 hours. Job ID: [id number]
[2019-10-26] MEDS: Acetaminophen 500 MG TAB PO SCH (03:38)
[2019-10-26] MEDS: Piperacillin/Tazobactam 3.375 GM in Sodium Chloride 0.9% 100 ML IVPB SCH ×2 (04:36→10:35)
[2019-10-26] MEDS: Ketorolac Tromethamine 30 MG/ML VIAL IVP SCH ×2 (05:01→12:22)
[2019-10-26] MEDS: Sodium Chloride 0.9% 1,000 ML IV SCH (05:02)
[2019-10-26 05:11] LABS: #Lymphocytes 2.4 thou/uL (1.20-3.40); #Monocytes 0.9 thou/uL (0.11-0.59); #Neutrophils 9.5 thou/uL (1.40-6.50); %Basophils 0.1 % (0.0-1.0); %Eosinophils 0.3 % (0.0-10.0); %Monocytes 6.7 % (0.0-10.0); %Neutrophils 73.9 % (42.0-75.0); Hemoglobin 11.8 g/dL (12.0-16.0); Mean Corpuscular Hemoglobin 28.5 pg (27.0-31.0); Mean Corpuscular Volume 86.4 fL (78.0-98.0); Mean Platelet Volume 7.9 fL (7.4-10.4); Platelet Count 231 thou/uL (130-400); RBC Distribution Width 12.5 % (11.5-14.5); Red Blood Cell (RBC) Count 4.15 mill/uL (4.20-5.40); White Blood Cell (WBC) Count 12.9 thou/uL (4.8-10.8)
[2019-10-26 05:37] LABS: ALT (SGPT) 279 U/L (8-55); AST (SGOT) 267 U/L (5-34); Albumin 3.4 g/dL (3.5-5.0); Alkaline Phosphatase 313 U/L (40-110); Anion Gap 10 mmol/L (10-20); BUN (Urea Nitrogen) 5 mg/dL (7.0-18.7); Bilirubin, Total 2.3 mg/dL (0.2-1.2); Calc. Creatinine Clearance 230 mL/min (70-130); Calcium 8.8 mg/dL (7.8-10.44); Carbon Dioxide 28 mmol/L (22-29); Chloride 106 mmol/L (98-107); Estimated GFR-MDRD Greater than 90; Globulin 3.4 g/dL (2.4-3.5); Glucose 92 mg/dL (70-105); Lipase 19 U/L (8-78); Potassium 3.7 mmol/L (3.5-5.1); Protein, Total 6.8 g/dL (6.0-8.3); Sodium 140 mmol/L (136-145)
[2019-10-26] MEDS: Ziprasidone 60 MG CAP PO SCH (08:36)
[2019-10-26] MEDS: Famotidine/PF 20 mg/2ml Vial SLOW IVP SCH (08:36)
--- NOTE | 2019-10-26 10:56 | PRG ---
DATE OF SERVICE: 10/26/2019 This is Suman Gonzalez PA-C dictating a report for Brenden Hunt DO. HISTORY: The patient is currently on the surgical floor. She is a patient we are seeing as consultants for right upper quadrant pain that yesterday she underwent laparoscopic cholecystectomy followed by ERCP by Dr. Palencia. She tolerated these procedures well. Her LFTs were noted to be slightly more elevated this morning and we are told that there is a plan for MRCP today. Overnight, she had no issues. Her pain was controlled. She was tolerating a clear liquid diet. She has been out of bed to use the bathroom. PHYSICAL EXAMINATION: VITAL SIGNS: Temperature is 98.2, heart rate 65, blood pressure 109/65, respirations 16, and oxygen saturation 95% on room air. GENERAL: The patient is resting comfortably in bed. She is awake, alert, conversant, appropriate. ABDOMEN: Soft, flat, and nondistended with active bowel sounds. No peritoneal signs. Her postop sites are clean, dry, and intact. LABORATORY FINDINGS: White blood cell count 12.9, hemoglobin 11.8, hematocrit 35.9, and platelets 231. Sodium 140, potassium 3.9, chloride 106, CO2 of 28, BUN 5, creatinine 0.74, and glucose 92. Total bilirubin 2.3, AST 267, ALT 279, and alkaline phosphatase 313. There are no radiographs reports to review. Pathologic report of gallbladder, status post cholecystectomy is consistent with acute and chronic cholecystitis, cholelithiasis. ASSESSMENT: Status post laparoscopic cholecystectomy. PLAN: Plan will be to continue supportive care from General Surgery standpoint. The patient will be continued evaluation by Dr. Palencia in the GI Service. The patient may advance her diet as tolerated per the Primary Team. Recommend walking program and out of bed frequently. The patient was evaluated this morning with Dr. Hunt during rounds. Job ID: [id number]
[2019-10-26 11:53] VITALS: BP 112/75; TEMP 98
[2019-10-26] MEDS ORDERED: traMADol HCl 50 MG TAB PO SCH (12:00)
--- NOTE | 2019-10-26 13:22 | PRG ---
DATE OF SERVICE: 10/26/2019 SUBJECTIVE: Ms. Garcia is tolerating liquid diet. She has been up walking around. She has been afebrile. Her abdomen feels better than yesterday but a little bit sore. She feels much better than when she came in. She is no longer vomiting. OBJECTIVE: VITAL SIGNS: Temperature 98.2, pulse 65, blood pressure 109/65. HEENT: She is nonicteric. LUNGS: Clear. HEART: Regular rhythm. ABDOMEN: Soft, nontender. There is appropriate tenderness at the trocar sites but they appear warm and dry. There is no rebound or guarding. LABORATORY DATA: White count is down from 15.2 yesterday to 12.9, hemoglobin 11.8, platelet count 231. Electrolytes are normal with sodium of 140, potassium 3.6. BUN and creatinine of 5 and 0.74. Bilirubin is down from 2.9 to 2.3. AST and ALT are slightly up at 267 and 279 with alkaline phosphatase of 313. Lipase is 19. Pathology showed acute and chronic cholecystitis. ASSESSMENT AND PLAN: 1. Status post laparoscopic cholecystectomy for acute on chronic cholecystitis. 2. She had an ultrasound that raised a concern for possible choledocholithiasis. However, laparoscopic cholecystectomy and IOC could not be performed as there was occlusion of the cystic duct. ERCP showed a defect in the mid common bile duct with impingement from the right lateral aspect of the duct. This was not in appearance consistent with a stone and with occlusion cholangiogram. This is either a mass or probably from the gallbladder, it could be a variant of Mirizzi syndrome. Multiple attempts were made to pull this down with the balloon, which were unsuccessful and ultimately a stent was placed, 11.57 cm stent, to ensure there was good patency and flow of bile which was documented endoscopically and radiographically. RECOMMENDATION: I think the patient can go home today. Follow up in our office in a week with LFTs. She will need ERCP in 6 weeks to remove the stent. Repeat the cholangiogram. If this resolves by then, then most likely we are dealing with just an inflammatory process. If it does not, then she may need a choledochoscopy or other evaluation. 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 Job ID: [id number]
--- NOTE | 2019-10-26 16:28 | DIS ---
DATE OF ADMISSION: 10/24/2019 DATE OF DISCHARGE: 10/26/2019 DISCHARGE DIAGNOSES: 1. Abdominal pain. 2. Choledocholithiasis. 3. Bipolar disorder. 4. Obesity. HOSPITAL COURSE: The patient is a 19-year-old female, who initially presented to the hospital with abdominal pain, some nausea and vomiting. She at this time was seen by Surgery, was taken for laparoscopic cholecystectomy. However, this was unsuccessful since there was an occlusion of the cystic duct per notes. At this time, ERCP showed a defect in her mild common bile duct with impingement from the right lateral aspect of the duct. The patient underwent a placement of a stent. The patient will follow up with GI in about 2 weeks. She will also be started on some antibiotics. HOME MEDICATIONS: Will be; 1. Augmentin 1 p.o. twice a day. 2. Tramadol 50 q.6 p.r.n. 3. Sertraline 100 mg daily. 4. Geodon 60 mg twice a day. PHYSICAL EXAMINATION: VITAL SIGNS: Temperature 98.0, pulse 69, respirations 16, oxygen saturation 97% on room air, blood pressure 112/75. GENERAL: She is awake, alert, oriented x3. Does not appear in distress. CV: S1 and S2 present. No murmurs, rubs, or gallops. ABDOMEN: Soft. Laparoscopic incisions noted. Bowel sounds are present x2. No pain. She has been ambulating. She has been advised to eat low-fat diet and also follow up with Dr. Palencia in 2 weeks, given the fact that she has a stent in. Also, she will continue her antibiotics. Job ID: [id number]
== END 2019-10-26 15:00 | disposition home or self-care (01) | DRG 418 ==
LOC: ERS 18:32 → SURG A 22:23
PROVIDERS: ADMIT Internal Medicine; ATTEND Internal Medicine
PROC: 0FT44ZZ Resection of Gallbladder, Percutaneous Endoscopic Approach (ICD-10-PCS; principal; 2019-10-25)
PROC: 0F798DZ Dilation of Common Bile Duct with Intraluminal Device, Via Natural or Artificial Opening Endoscopic (ICD-10-PCS; 2019-10-25)
DX: K80.63 Calculus of gallbladder and bile duct with acute cholecystitis with obstruction (principal); Z68.42 Body mass index [BMI] 45.0-49.9, adult; F20.9 Schizophrenia, unspecified; F31.9 Bipolar disorder, unspecified; N83.209 Unspecified ovarian cyst, unspecified side; F17.210 Nicotine dependence, cigarettes, uncomplicated; F90.9 Attention-deficit hyperactivity disorder, unspecified type; F41.9 Anxiety disorder, unspecified; E66.9 Obesity, unspecified
CPT/HCPCS: 36415; 74176; 74330; 76705; 80053; 81003; 83690; 84703; 85007; 85025; 85027; 88304; 96361; 96365; C1769; J1100; J1885; J2001; J2175; J2405; J2543; J2704; J3010; J3490; S0020; S0028

== ENCOUNTER 2019-12-07 06:26 | Outpatient (CLI) | payer OTHER ==
[2019-12-07 18:24] LABS: BHCG - Serum Negative (NEGATIVE); Pregs Control Background? CLEAR/WHITE (CLR/WHITE); Pregs Control Bar Appear? YES (CONTROL BAR)
[2019-12-08 16:31] LABS: SARS-CoV-2 MS2 Positive; SARS-CoV-2 N Gene Negative; SARS-CoV-2 S Gene Negative; SARS-CoV-2 orf1ab Negative
== END 2019-12-07 06:27 | disposition home or self-care (01) ==
LOC: LABBT 06:26
PROVIDERS: ATTEND Internal Medicine Gastroenterology
DX: Z01.812 Encounter for preprocedural laboratory examination (principal); Z11.59 Encounter for screening for other viral diseases; K21.9 Gastro-esophageal reflux disease without esophagitis; R94.5 Abnormal results of liver function studies; R11.2 Nausea with vomiting, unspecified; K83.9 Disease of biliary tract, unspecified
CPT/HCPCS: 84703; 87635; U0003

== ENCOUNTER 2019-12-11 06:29 | Day surgery (SDC) | payer MEDICARE ==
[2019-12-07 16:46] VITALS: BMI 48.6
[2019-12-11] MEDS ORDERED: Iopamidol 50 ML FS ONE (08:27)
[2019-12-11] MEDS ORDERED: Midazolam HCl 2 mg/2 ml Vial ONE (08:31)
[2019-12-11] MEDS ORDERED: Fentanyl 100 MCG/2 ML VIAL ONE (08:31)
--- NOTE | 2019-12-11 10:31 | RAD ---
ERCP: COMPARISON: 10/25/2019. HISTORY: ERCP with stent removal. FINDINGS/IMPRESSION: Multiple limited intraoperative fluoroscopic views from the ERCP were submitted for interpretation. There is a biliary stent seen. Contrast was injected through the stent. No significant intrahepatic biliary dilatation is seen. A filling defect in the common bile duct likely represents a bubble of air. Eventually, the stone was removed and this filling defect is no longer visualized. POS: EAA
[2019-12-11] MEDS ORDERED: Lidocaine 1% PF 5 ML VIAL ONE (12:26)
[2019-12-11] MEDS ORDERED: Rocuronium Bromide 10 MG/ML (10ML VIAL) ONE (12:26)
[2019-12-11] MEDS ORDERED: Dexamethasone 20 MG/5 ML VIAL ONE (12:26)
[2019-12-11] MEDS ORDERED: Ondansetron PF 4 MG/2 ML Vial ONE (12:26)
[2019-12-11] MEDS ORDERED: PROPOFOL 200 MG/20 ML VIAL ONE (12:26)
[2019-12-11] MEDS ORDERED: Succinylcholine Chloride 20 MG/ML 10 ml SYRINGE FS ONE (12:26)
--- NOTE | 2019-12-11 16:58 | OP ---
DATE OF PROCEDURE: 12/11/2019 PREPROCEDURE DIAGNOSES: Recent episode of cholecystitis and choledocholithiasis in October, previous ERCP, a stent was placed in the common bile duct as there was a filling defect seen adherent to the wall of the mid common bile duct of unclear etiology. POSTPROCEDURE DIAGNOSES: 1. Same filling defect noted on the lateral wall of the common bile duct adjacent to the area of clips. It was unclear if this was Mirizzi's or tumor mass of previous procedure and a stent had been placed. 2. Multiple attempts with the balloon to pull this down were unsuccessful, ultimately was grasped with a stone media coordinator 2.5 cm basket and it was firm and hard. It was crushed and it turned out to be a stone that was removed from the bile duct possibly at the orifice of the cystic duct stump. 3. Inflammation and occlusion in the common bile duct was clear with no filling defects noted and good drainage of bile and contrast both endoscopically and radiographically. Stone fragments were swept from the duct until it was clear. ANESTHESIA: General endotracheal anesthesia. PROCEDURE IN DETAIL: After the patient and mother were informed of the risks, benefits, and possible complications of endoscopy including perforation, reaction to medication, and aspiration, informed consent was obtained. The patient was brought to the endoscopy suite where she was sedated in gradual fashion, intubated, and placed in prone position on fluoroscopy table. A [employer] scout film showed the stent in the distal common bile duct. The scope was brought into position and the stent was grasped and removed with a snare. After this was done, a balloon catheter 9-12 mm was advanced into the common bile duct, and a cholangiogram was obtained. This again showed a filling defect in the lateral wall of mid portion of the common bile duct, would not really move with manipulation with a balloon and seemed to be fixed. We swept these several times. There was a small amount of bile draining around it. We decided to go ahead and try to grasp the area with the basket to see what happen and we ended up grasping a hard stone, crushed that with mechanical lithotripsy, and then removed fragments. Once this was completely removed, the cholangiogram was repeated and there were no more filling defects noted in the common bile duct. The duct was swept 3 or 4 more times until it was clear. It was noted to be draining both endoscopically and radiographically. The scope was removed. The patient tolerated the procedure well with no complications. Job ID: [id number]
== END 2019-12-11 11:45 | disposition home or self-care (01) ==
LOC: SDC 06:29
PROVIDERS: ATTEND Internal Medicine Gastroenterology
PROC: 0FC98ZZ Extirpation of Matter from Common Bile Duct, Via Natural or Artificial Opening Endoscopic (ICD-10-PCS; principal; 2019-12-11)
DX: K80.51 Calculus of bile duct without cholangitis or cholecystitis with obstruction (principal); R94.5 Abnormal results of liver function studies; K21.9 Gastro-esophageal reflux disease without esophagitis; F41.9 Anxiety disorder, unspecified; F31.9 Bipolar disorder, unspecified; F17.200 Nicotine dependence, unspecified, uncomplicated; Z79.899 Other long term (current) drug therapy; Z88.8 Allergy status to other drugs, medicaments and biological substances
CPT/HCPCS: 74330; J1100; J2001; J2250; J2405; J2704; J3010; Q9967

== ENCOUNTER 2020-05-16 15:24 | Emergency (ER) | payer MEDICARE, SELFPAY ==
[2020-05-16 15:59] LABS: #Eosinphils 0.5 thou/uL (0.0-0.7); #Lymphocytes 3.2 thou/uL (1.20-3.40); #Monocytes 0.7 thou/uL (0.11-0.59); #Neutrophils 7.4 thou/uL (1.40-6.50); %Basophils 0.3 % (0.0-1.0); %Monocytes 5.9 % (0.0-10.0); %Neutrophils 62.8 % (42.0-75.0); Hemoglobin 12.7 g/dL (12.0-16.0); Mean Corpuscular HGB CONC 34.4 g/dL (32.0-36.0); Mean Corpuscular Volume 84.2 fL (78.0-98.0); Mean Platelet Volume 7.3 fL (7.4-10.4); Platelet Count 269 thou/uL (130-400); RBC Distribution Width 13.1 % (11.5-14.5); White Blood Cell (WBC) Count 11.7 thou/uL (4.8-10.8)
[2020-05-16] MEDS ORDERED: Famotidine 20 MG TAB ONE (16:13)
[2020-05-16] MEDS ORDERED: Lidocaine Viscous Sol 2% 15 ml UD Cup ONE (16:13)
[2020-05-16] MEDS ORDERED: Ondansetron ODT 4 MG TAB ONE (16:13)
[2020-05-16] MEDS ORDERED: Mag-Al 1200 mg/1200 mg/30 ML UDCUP ONE (16:13)
[2020-05-16 16:14] LABS: ALT (SGPT) 16 U/L (8-55); AST (SGOT) 15 U/L (5-34); Albumin 3.9 g/dL (3.5-5.0); Alkaline Phosphatase 100 U/L (40-110); Anion Gap 13 mmol/L (10-20); BUN (Urea Nitrogen) 10 mg/dL (7.0-18.7); Bilirubin, Total 0.2 mg/dL (0.2-1.2); CK (CPK) 68 U/L (29-168); Calc. Creatinine Clearance 0 mL/min (70-130); Calcium 8.7 mg/dL (7.8-10.44); Carbon Dioxide 23 mmol/L (22-29); Chloride 105 mmol/L (98-107); Estimated GFR-MDRD Greater than 90; Glucose 94 mg/dL (70-105); Potassium 4.4 mmol/L (3.5-5.1); Protein, Total 6.9 g/dL (6.0-8.3); Sodium 137 mmol/L (136-145)
--- NOTE | 2020-05-16 16:16 | RAD ---
Chest one view HISTORY: Chest pain. COMPARISON: 02/11/2020. FINDINGS: Cardiac silhouette is magnified by projection. Pulmonary vasculature is unremarkable. Mediastinum is midline. No lobar consolidation or evidence of pneumothorax. IMPRESSION : No abnormalities are demonstrated.
== END 2020-05-16 17:45 | disposition home or self-care (01) ==
LOC: ERS 15:24
DX: K52.9 Noninfective gastroenteritis and colitis, unspecified (principal); J45.909 Unspecified asthma, uncomplicated; F90.9 Attention-deficit hyperactivity disorder, unspecified type; F25.9 Schizoaffective disorder, unspecified; F31.9 Bipolar disorder, unspecified; Z87.891 Personal history of nicotine dependence; Z79.899 Other long term (current) drug therapy
CPT/HCPCS: 36415; 71045; 80053; 82550; 83690; 84484; 85025; 93005; Q0162